=== PATIENT | male | born 1960 | race Caucasian/White ===

== ENCOUNTER 2024-06-03 15:10 | Emergency (ER) | payer BC, SELFPAY ==
[2024-06-03 15:12] VITALS: BP 130/87; PULSE 66; RESP 19; TEMP 36.6; O2SAT 99; BMI 24.4
--- NOTE | 2024-06-03 15:55 | CT_ITS ---
PROCEDURE INFORMATION: Exam: CT Neck With Contrast Exam date and time: 06/03/2024 4:48 PM Age: 63 years old Clinical indication: Neck pain; Additional info: Neck, mouth, and tongue pain TECHNIQUE: Imaging protocol: Computed tomography of the neck with contrast. Radiation optimization: All CT scans at this facility use at least one of these dose optimization techniques: automated exposure control; mA and/or kV adjustment per patient size (includes targeted exams where dose is matched to clinical indication); or iterative reconstruction. Contrast material: ISOVUE; Contrast volume: 75 ml; Contrast route: IV; COMPARISON: CT SOFT TISSUE NECK W CON 06/03/2024 4:48 PM FINDINGS: Paranasal sinuses: Mild mucosal thickening floor of the right maxillary sinus otherwise visualized paranasal sinuses are clear. Salivary glands: Normal. Glands are normal in size. Pharynx: Unremarkable. No significant tonsillar enlargement. Prevertebral and retropharyngeal spaces: Unremarkable. Larynx: Unremarkable. Epiglottis is normal. Thyroid: Normal. No enlarged or calcified nodules. Trachea: Visualized trachea is unremarkable. Lungs: Lung apices are clear. Lymph nodes: Unremarkable. No lymphadenopathy. Bones/joints: There is reversal of cervical lordosis that appears to be degenerative in nature. [id number] multilevel degenerative changes are noted throughout the cervical spine. Soft tissues: Unremarkable. No significant soft tissue swelling. IMPRESSION: Unremarkable contrast enhanced CT examination of the neck.
--- NOTE | 2024-06-03 15:55 | CT_ITS ---
PROCEDURE INFORMATION: Exam: CTA Abdomen and Pelvis With Contrast Exam date and time: 06/03/2024 4:43 PM Age: 63 years old Clinical indication: Abdominal pain; Epigastric; Additional info: Epigastric pain, nausea, anorexia TECHNIQUE: Imaging protocol: Computed tomographic angiography of the abdomen and pelvis with contrast. Exam focused on the arteries. 3D rendering (Not supervised by radiologist): MIP and/or 3D reconstructed images were created by the technologist. Radiation optimization: All CT scans at this facility use at least one of these dose optimization techniques: automated exposure control; mA and/or kV adjustment per patient size (includes targeted exams where dose is matched to clinical indication); or iterative reconstruction. Contrast material: ISOVUE 370; Contrast volume: 80 ml; Contrast route: INTRAVENOUS (IV); COMPARISON: No relevant prior studies available. FINDINGS: Lungs: Lung bases are clear. Heart: Heart is borderline enlarged. Aorta: No aortic aneurysm. No aortic dissection. Celiac trunk and mesenteric arteries: No occlusion or significant stenosis. Renal arteries: No occlusion or significant stenosis. Right iliac arteries: No occlusion or significant stenosis. Left iliac arteries: No occlusion or significant stenosis. Liver: Liver is unremarkable. No mass or enlargement detected. Gallbladder and biliary ducts: Unremarkable. No calcified stones. No ductal dilation. Pancreas: Unremarkable. Main pancreatic duct is not significantly dilated. Spleen: There are scattered calcified granulomas within the spleen, longstanding, otherwise spleen is unremarkable. Adrenal glands: Unremarkable. No mass. Kidneys and ureters: Unremarkable. No solid mass. No hydronephrosis. Stomach and bowel: Moderate degree of retained stool throughout the large bowel that may reflect some degree of constipation. Appendix: No evidence of acute appendicitis. Intraperitoneal space: Unremarkable. No free air. No significant fluid collection. Lymph nodes: Unremarkable. No enlarged lymph nodes. Urinary bladder: Unremarkable. No mass. Reproductive: Unremarkable as visualized. Bones/joints: No acute fracture. Soft tissues: Unremarkable. IMPRESSION: 1. Unremarkable CTA of the abdomen and pelvis. 2. Moderate degree of retained stool throughout the large bowel that may reflect some degree of constipation.
[2024-06-03 16:00] VITALS: BP 131/90; PULSE 62; O2SAT 96
[2024-06-03 16:00] LABS: Basophils # 0.1 K/mm3 (0-0.2); Eosinophils # 0.1 K/mm3 (0.0-0.4); Eosinophils % 1.1 % (0.1-12.0); Hematocrit 44.3 % (42.0-52.0); Hemoglobin 15.7 g/dL (14.1-18.0); Lymphocytes # 1.2 K/mm3 (0.7-4.5); Mean Corpuscular HGB Conc 35.4 g/dL (31.8-35.4); Mean Corpuscular Hemoglobin 31.4 pg (27.0-31.2); Mean Corpuscular Volume 88.6 fl (80-94); Mean Platelet Volume 8.9 fl (7.4-10.4); Monocytes # 0.5 K/mm3 (0.1-1.0); Monocytes % 8.3 % (1.7-9.3); Neutrophils # 4.3 K/mm3 (1.8-7.8); Neutrophils % 70.1 % (37.0-80.0); Platelet Count 244 K/mm3 (142-424); Red Cell Distribution Width 11.9 % (11.5-17.5); White Blood Count 6.1 K/mm3 (4.8-10.8)
--- NOTE | 2024-06-03 16:02 | HMH.EDGENADL ---
Discharge Plan Disposition Patient Disposition: Home, Self-Care Condition: Good Prescriptions Prescriptions: New sucralfate [Carafate] 1 gram tablet 1 g PO BID PRN (Reason: abdominal discomfort) Qty: 60 0RF nystatin 100,000 unit/mL suspension 4 ml PO QID 10 Days Qty: 160 0RF Rx Instructions: swish and swallow polyethylene glycol 3350 [Miralax] 17 gram/dose powder 17 g PO DAILY Qty: 510 0RF metoclopramide HCl [Reglan] 5 mg tablet 5 mg PO Q6H PRN (Reason: nausea and vomiting) Qty: 20 0RF Referrals Follow up/Referrals: Susie Sanchez [Primary Care Provider] - See instructions Kulwant Zamora II, MD [Staff Physician] - See instructions Activity Restrictions/Add. Instructions Additional Instructions/Restrictions: You were evaluated in the emergency department today. At this time, your CT scans and labs are reassuring. I feel your oral issues may be related to thrush, so I will prescribe you a trial of nystatin. You are found to have constipation, for which I prescribed MiraLAX. For your stomach issues, I am prescribing you Reglan and Carafate. Please follow-up closely with your primary care provider. I also recommend close follow-up with gastroenterology. Return to the emergency department for new or worsening symptoms. Clinical Impressions Clinical Impression: Oral thrush, Abdominal pain, epigastric, Constipation Stand Alone Forms Stand Alone Forms: Work/School Release Instructions Patient Instructions: DI for Thrush, DI for Constipation, DI for Acute Abdominal Pain Print Language Print Language: Guatemalan Discharge ED Provider: Sujata Kirk General Adult HPI General Chief complaint: Abdominal Pain Stated complaint: abd pain Time Seen by Provider: 06/03/24 15:18 Mode of Arrival: Ambulatory Source of Information: Patient Limitations: No Limitations Description of Symptoms (Recalled from ER Triage Doc. by RN): pt presents to ED with c/o dark stools, nausea, vomitting, abdominal pain. symptoms ongoing for the past 3 months. History of Present Illness HPI narrative: This patient is a 63-year-old male with a history of hypertension and hyperlipidemia presenting to the emergency department for evaluation with concern for abdominal pain, nausea, inability to eat. Patient states that has been having issues since November. He notes that he was healthy prior to that. He started having some neck pain, tongue cracking and discoloration, tongue burning, nausea, epigastric pain, and poor appetite. Symptoms have been waxing waning and he has followed up outpatient with his care team in [facility]. He notes that he is underwent MRI of his neck which was concerning for neuroforaminal stenosis. He also had a CT scan that found a dental abscess, which he had taken care of. He has not had imaging of his belly or had any sort of upper or lower endoscopy. He notes he took some Pepto-Bismol for his symptoms, and his stools are darker than normal but not necessarily black tarry. No prior abdominal surgeries. No fevers, chills, cough, congestion, chest pain, shortness of breath, diarrhea, vomiting, unintentional weight loss, or other concerns. He does note night sweats. Related Data Previous Rx's ?Medication ?Instructions ?Recorded metoclopramide HCl 5 mg tablet 5 mg PO Q6H PRN nausea and 06/03/24 (Reglan) vomiting #20 tabs nystatin 100,000 unit/mL oral 4 ml PO QID 10 days #160 mL 06/03/24 suspension polyethylene glycol 3350 17 17 g PO DAILY #510 grams 06/03/24 gram/dose oral powder (Miralax) sucralfate 1 gram tablet (Carafate) 1 g PO BID PRN abdominal 06/03/24 discomfort #60 tabs Allergies Allergy/AdvReac Type Severity Reaction Status Date / Time No Known Allergies Allergy Verified 06/03/24 15:36 [facility] Disclaimer: The information contained in this section may have been updated after the patient was seen, as this information can be updated by other users. Social History Smoking Status: Never smoker alcohol intake: never current occupational status: retired Travel in the last 8 weeks: None ROS Obtained: Yes All systems reviewed & no additional complaints except as documented Physical Exam General General appearance: alert and in no apparent distress Head Head exam: atraumatic and normocephalic Eye Eye exam: Present normal appearance, PERRL and EOMI ENT ENT exam: Present mucous membranes dry and normal external ear exam Expanded ENT Exam Mouth exam: Present other (dry and cracked tongue with white/yellow plaques, dark area on posterior tongue) Neck Neck exam: Present normal inspection, full ROM and trachea midline; Absent tenderness Chest Chest inspection: Present normal inspection and symmetric chest wall rise; Absent tenderness Respiratory Respiratory exam: Present normal lung sounds bilaterally; Absent respiratory distress, wheezes, stridor or accessory muscle use Cardiovascular Cardiovascular exam: Present regular rate and normal rhythm Abdominal Exam Abdominal exam: Present soft and tenderness (Epigastric); Absent distention, guarding, rebound or rigidity Extremities Exam Extremities exam: Present normal inspection, full ROM and normal capillary refill; Absent tenderness or edema Back Exam Back exam: Present normal inspection and full ROM; Absent tenderness Neurological Exam Neurological exam: Present alert, oriented X3, CN II-XII intact and normal gait; Absent motor sensory deficit Psychiatric Psychiatric exam: Present normal affect and normal mood Skin Skin exam: Present warm and dry Medical Decision Making Medical Records Medical records reviewed: Yes I reviewed the patient's medical records. Screening: Per USPSTF and CDC recommendations, given the prevalence of disease in our region, it is our hospital?s policy to screen for HIV and viral Hepatitis for all patients aged 18 and over and those with ongoing risk factors. Derrick Inquiry Pt receiving controlled substance: No Vital Signs: 06/03/24 15:12 06/03/24 16:00 06/03/24 16:53 Temperature 97.9 F Temperature Source Oral Pulse Rate 62 63 Pulse Rate [Left Radial] 66 Respiratory Rate 19 Blood Pressure 131/90 143/90 H Blood Pressure [Right Arm] 130/87 Blood Pressure Mean [Right Arm] 101 02 Sat by Pulse Oximetry 99 96 98 Oxygen Delivery Method Room Air Room Air Room Air 06/03/24 17:00 06/03/24 17:30 06/03/24 18:44 Temperature 97.9 F Temperature Source Pulse Rate 52 L 49 L 49 L Pulse Rate [Left Radial] Respiratory Rate 13 Blood Pressure 134/83 130/79 130/79 Blood Pressure [Right Arm] Blood Pressure Mean [Right Arm] 02 Sat by Pulse Oximetry 97 98 Oxygen Delivery Method Room Air Room Air Lab Data Lab results reviewed: Yes I reviewed the patient's lab results. Lab Results 06/03/24 15:18: Urine Color Yellow, Urine Appearance Clear, Urine pH 7.5, Ur Specific [place] 1.010, Urine Protein Negative, Urine Glucose (UA) Negative, Urine Ketones Negative, Urine Blood Negative, Urine Nitrate Negative, Urine Bilirubin Negative, Urine Urobilinogen 0.2, Ur Leukocyte Esterase Negative, Urine RBC None, Urine WBC None, Ur Squamous Epith Cells None, Urine Bacteria Trace 06/03/24 15:30: WBC 6.1, RBC 5.00, Hgb 15.7, Hct 44.3, MCV 88.6, MCH 31.4 H, MCHC 35.4, RDW 11.9, Plt Count 244, MPV 8.9, Neut % (Auto) 70.1, Lymph % (Auto) 19.0, [place] % (Auto) 8.3, Eos % (Auto) 1.1, Baso % (Auto) 1.0, Neut # (Auto) 4.3, Lymph # (Auto) 1.2, [place] # (Auto) 0.5, Eos # (Auto) 0.1, Baso # (Auto) 0.1, Sodium 134 L, Potassium 3.9, Chloride 103, Carbon Dioxide 24, Anion Gap 10.9, BUN 12, Creatinine 0.90, Estimated Creat Clear 86, Estimated GFR 85, Est GFR ( Amer) 103, Glucose 98, Calcium 9.5, Phosphorus 2.9, Magnesium 1.9, Total Bilirubin 0.9, AST 38, ALT 33, Alkaline Phosphatase 61, Troponin I < 0.01, Total Protein 7.2, Albumin 4.6, Globulin 2.6, Albumin/Globulin Ratio 1.8, Lipase 93, Vitamin B12 748, TSH 0.97, Thyroxine (T4) 10.7 06/03/24 15:59: VBG pH 7.43 H, VBG pCO2 38.9, VBG pO2 48.5 H, VBG HCO3 25.4, VBG Total CO2 26.6, VBG O2 Saturation 84.5 H, VBG Base Excess 1.3, VBG Lactic Acid 2.1 H 06/03/24 17:57: Stool Occult Blood Negative 06/03/24 15:30 06/03/24 15:30 Orders (Tests/Meds): ED MEDICATIONS Discontinued Medications Generic Name Dose Route Start Last Admin Trade Name Freq PRN Reason Stop Dose Admin Dicyclomine HCl 20 mg 06/03/24 15:52 06/03/24 16:14 Dicyclomine 10mg Capsule PO 06/03/24 15:53 20 mg ONCE ONE Administration Famotidine 20 mg 06/03/24 15:52 06/03/24 16:14 Famotidine 20mg/2ml Vial IV 06/03/24 15:53 20 mg ONCE ONE Administration Iopamidol 80 ml 06/03/24 16:47 06/03/24 16:48 Iopamidol-370 (76%);100ml Bottle IV 06/03/24 16:48 80 ml ONCE ONE Administration Iopamidol 75 ml 06/03/24 16:49 06/03/24 16:49 Iopamidol-370 (76%);100ml Bottle IV 06/03/24 16:50 75 ml ONCE ONE Administration Metoclopramide HCl 5 mg 06/03/24 15:52 06/03/24 16:14 Metoclopramide Hcl 10mg/2ml Vial IVP 06/03/24 15:53 5 mg ONCE ONE Administration Nystatin 500,000 unit 06/03/24 17:36 06/03/24 18:11 Nystatin Susp 500,000 Units/5ml Udc PO 06/03/24 17:37 500,000 unit ONCE ONE Administration Sodium Chloride 8 ml 06/03/24 15:52 Sodium Chloride 0.9% 10ml Vial IV 07/03/24 15:51 NEEDED PRN dilute pepcid Sodium Chloride 10 ml 06/03/24 16:47 06/03/24 16:48 Sodium Chloride 0.9% 10ml Syr (Rad Only) IV 06/03/24 16:48 10 ml ONCE ONE Administration Sodium Chloride 50 ml 06/03/24 16:47 06/03/24 16:48 0.9 % Sodium Chloride 50 Ml Vial IV 06/03/24 16:48 50 ml ONCE ONE Administration Sodium Chloride 10 ml 06/03/24 16:49 06/03/24 16:49 Sodium Chloride 0.9% 10ml Syr (Rad Only) IV 06/03/24 16:50 10 ml ONCE ONE Administration Tetracycl/Hydrocort/Nystatin/Diphen 15 ml 06/03/24 15:54 06/03/24 16:14 Magic Mouthwash 300ml Bottle PO 06/03/24 15:55 15 ml ONCE ONE Administration ORDERS Category Date Time Status CT angio abdomen pelvis Stat Cat Scan 06/03/24 15:[address] soft tissue neck w con Stat Cat Scan 06/03/24 15:55 Completed Complete Blood Count Auto Diff Stat Lab 06/03/24 15:30 Completed Comprehensive Metabolic Panel Stat Lab 06/03/24 15:30 Completed Lipase Stat Lab 06/03/24 15:30 Completed MAG [Magnesium] Stat Lab 06/03/24 15:30 Completed Occult Blood,Stool Stat Lab 06/03/24 17:57 Completed PHOS [Phosphorous] Stat Lab 06/03/24 15:30 Completed T4 (Thyroxine) Stat Lab 06/03/24 15:30 Completed TSH [Thyroid Stimulating Hormone] Stat Lab 06/03/24 15:30 Completed Trop I [Troponin I] Stat Lab 06/03/24 15:30 Completed UA [Urinalysis and Microscopic] Stat Lab 06/03/24 15:18 Completed Vitamin B12 Stat Lab 06/03/24 15:30 Completed VBG [Venous Blood Gas] Stat RT 06/03/24 15:59 Completed ECG Data Tracing #1: I reviewed this ECG and interpreted as documented below: Sinus bradycardia with a ventricular rate of 56 bpm. Right ventricular conduction delay. No acute STEMI. Normal axis ECG initial impression date: 06/03/24 ECG initial impression time: 16:07 Medical Decision Narrative: In summary, this patient is a 63-year-old male presenting to the Emergency Department for evaluation of months of epigastric discomfort, nausea, tongue/oral issues, darker stools than normal. Differential diagnoses considered include but are not limited to esophagitis, gastritis, peptic ulcer disease, malignancy, thrush, dehydration, intestinal ischemia, pancreatitis, upper GI bleed. Ruling out the most morbid conditions drove assessment. It should be noted patient's history includes hypertension and hyperlipidemia which may or may not be at goal therapy. This complicates all aspects of care by increasing patient's risk for morbidity. On exam, the patient is lying in bed in no acute distress. He has dry mouth with a yellow, cracked tongue with a dark area on the posterior aspect. He has had darker stools normal but denies black tarry stools. He has been taking Pepto-Bismol for gastrointestinal symptoms. He has nausea but no vomiting. He has epigastric tenderness with no rebound or guarding. Workup included broad lab evaluation to evaluate for infectious, metabolic etiologies of his symptoms as well as CT soft tissue neck given his issues with his neck/mouth and CT angiogram of the abdomen and pelvis. He was given Magic mouthwash, Reglan, Pepcid, Bentyl for symptomatic improvement. EKG was obtained and is reassuring. I independently interpreted CT scan prior to the radiologist read and noted no obvious obstructive process in the abdomen, no obvious large lesions in the neck. He does have constipation. Please see their read for final interpretation. Labs were obtained that demonstrated reassuring CBC with no significant anemia, Hemoccult stool is negative, patient has mild alkalosis, negative troponin, reassuring chemistry, reassuring urine. On reassessment, patient had good improvement after administration of interventions above. He is feeling better. Overall, his oral exam looks like it could be thrush, so I am going to trial him on nystatin. I also prescribed him Carafate with concern for possible gastritis, MiraLAX with concern for constipation, nystatin for potential oral thrush, Reglan for nausea. Overall, at this time, I feel the patient's symptoms are improved and he is appropriate for discharge home with very close follow-up with gastroenterology for further evaluation and management of his symptoms. He was given strict return precautions and was discharged after all questions were answered. Critical Care Critical Care Time Critical Care Time: No
[2024-06-03 16:03] LABS: Microscopic, Urine URINE MICROSCOPIC (MICROSCOPIC)
--- NOTE | 2024-06-03 16:03 | ECG_ITS ---
APPROVED REPORT Exam: Resting ECG HR:56 bpm ECG Measurements Heart Rate 56 AXES KS 191 P 63 QRSd 87 QRS 45 QT 407 T 17 QTc 399 Conclusion SINUS BRADYCARDIA POSSIBLE RIGHT VENTRICULAR CONDUCTION DELAY [RSR (QR) IN V1/V2] NONSPECIFIC T-WAVE ABNORMALITY No STEMI Electronically signed by : DENISE CHOE, 06/04/2024 00:52:18
[2024-06-03 16:04] LABS: Appearance,Urine CLEAR (Clear); Bilirubin,Urine Negative (Negative); Blood, Urine Negative (Negative); Color,Urine YELLOW (Yellow); Glucose,Urine (UA) Negative (Negative); Ketones,Urine Negative (Negative); Leukocyte Esterase,Urine Negative (Negative); Nitrate,Urine Negative (Negative); PH,Urine 7.5 (5.0-8.5); Protein,Urine Negative (Negative); Urobilinogen,Urine 0.2 EU/dl (0.2)
[2024-06-03 16:05] LABS: VBG PH 7.43 mmol/L (7.31-7.41)
[2024-06-03 16:06] LABS: Lactate Venous 2.1 mmol/L (0.4-2.0); VBG Base Excess 1.3 mmol/L (-2.4-2.3); VBG HCO3 25.4 mmol/L (23-30); VBG Oxygen Saturation 84.5 % (50-70); VBG PCO2 38.9 mmol/L (35-51); VBG PO2 48.5 mmol/L (28-40); VBG Total CO2 26.6 mmol/L (23-27)
[2024-06-03 16:11] LABS: Albumin Level 4.6 g/dl (3.5-5.0)
[2024-06-03 16:12] LABS: Chloride 103 mmol/L (98-107); Potassium 3.9 mmoL/L (3.5-5.1); Sodium 134 mmol/L (136-145)
[2024-06-03 16:14] LABS: Alanine Aminotransferase 33 U/L (12-78); Alkaline Phosphatase 61 U/L (38-126); Anion Gap 10.9 mEq/L (5-15); Aspartate Amino Transferase 38 U/L (17-59); Bilirubin,Total 0.9 mg/dl (0.2-1.3); Blood Urea Nitrogen 12 mg/dl (9-20); Carbon Dioxide 24 mmol/L (22.0-30.0); Creatinine Clearance Estimated 86 mL/min (50-200); Estimated Glomerular Filt Rate 85 ml/min (>60); GFR (African American) 103 ML/MIN (>60)
[2024-06-03] MEDS: DICYCLOMINE 10MG CAPSULE 20 MG PO (16:14)
[2024-06-03] MEDS: MAGIC MOUTHWASH 300ML BOTTLE 15 ML PO (16:14)
[2024-06-03] MEDS: FAMOTIDINE 20MG/2ML VIAL 20 MG IV (16:14)
[2024-06-03] MEDS: METOCLOPRAMIDE HCL 10MG/2ML VIAL 5 MG IVP (16:14)
[2024-06-03 16:15] LABS: Albumin/Globulin Ratio 1.8 (1.1-1.8); Calcium 9.5 mg/dl (8.4-10.2); Globulin 2.6 g/dL (1.3-3.2); Glucose 98 mg/dl (74-100); Lipase 93 U/L (23-300); Magnesium 1.9 mg/dl (1.6-2.3); Phosphorous 2.9 mg/dl (2.5-4.5); Total Protein,Serum 7.2 g/dl (6.3-8.2)
[2024-06-03 16:19] LABS: Bacteria,Urine Trace /lpf
[2024-06-03 16:32] LABS: T4 (Thyroxine) 10.7 ug/dl (5.53-11.0)
[2024-06-03 16:34] LABS: Troponin I < 0.01 ng/ml (0.00-0.034)
[2024-06-03 16:46] LABS: Thyroid Stimulating Hormone 0.97 uIU/mL (0.465-4.68)
[2024-06-03] MEDS: 0.9 % SODIUM CHLORIDE 50 ML VIAL IV (16:48)
[2024-06-03] MEDS: IOPAMIDOL-370 (76%);100ML BOTTLE 80 ML IV (16:48)
[2024-06-03] MEDS: SODIUM CHLORIDE 0.9% 10ML SYR (RAD ONLY) 10 ML IV ×2 (16:48→16:49)
[2024-06-03] MEDS: IOPAMIDOL-370 (76%);100ML BOTTLE 75 ML IV (16:49)
[2024-06-03 16:53] VITALS: BP 143/90; PULSE 63; O2SAT 98
[2024-06-03 17:00] VITALS: BP 134/83; PULSE 52; O2SAT 97
[2024-06-03 17:09] LABS: Vitamin B12 748 pg/mL (239-931)
[2024-06-03 17:30] VITALS: BP 130/79; PULSE 49; O2SAT 98
[2024-06-03] MEDS: NYSTATIN SUSP 500,000 UNITS/5ML UDC 500000 UNIT PO (18:11)
[2024-06-03 18:22] LABS: Occult Blood,Stool Negative (Negative)
[2024-06-03 18:44] VITALS: BP 130/79; PULSE 49; RESP 13; TEMP 36.6
[2024-06-03 20:05] LABS: Reflex Lactic Add Lactic Reflex
== END 2024-06-03 18:44 | disposition home or self-care (01) ==
PROVIDERS: Emergency Provider Emergency Medicine; PCP Internal Medicine
DX: B37.0 Candidal stomatitis (principal); K59.00 Constipation, unspecified; R10.13 Epigastric pain; R11.2 Nausea with vomiting, unspecified; M54.2 Cervicalgia; R63.8 Other symptoms and signs concerning food and fluid intake; K92.1 Melena
CPT/HCPCS: 70491; 74174; 80053; 81001; 82272; 82607; 82803; 83690; 83735; 84100; 84436; 84443; 84484; 85025; 93005; 96374; 96375; 99285; G0328; J2765; Q9967; S0028

== ENCOUNTER 2024-06-10 08:05 | Outpatient (CLI) | payer BC, SELFPAY ==
--- NOTE | 2024-06-10 08:13 | US_ITS ---
FINAL REPORT CLINICAL HISTORY: EPIGASTRIC PAIN FINDINGS: RIGHT UPPER QUADRANT ULTRASOUND Technique: Ultrasound images of the right upper quadrant were obtained. There are small calcified granulomas in the liver. The gallbladder is well visualized and the wall appears normal. There are no gallstones. Common duct is normal. The right kidney is unremarkable. IMPRESSION: No acute process Reviewed, Interpreted and Dictated by Adair Frias MD Transcribed by Chitra Springer Authenticated and [facility]
== END 2024-06-10 23:59 | disposition home or self-care (01) ==
LOC: RAD 08:09
PROVIDERS: PCP Internal Medicine; Visit Provider Nurse Practitioner Family
DX: R10.13 Epigastric pain (principal)
CPT/HCPCS: 76705

== ENCOUNTER 2024-06-17 07:56 | Outpatient (RCR) | payer BC, SELFPAY | END 2024-06-17 23:59 | disposition home or self-care (01) | LOC: PT 07:56 | PROVIDERS: PCP Internal Medicine; Visit Provider Neurological Surgery | DX: M47.812 Spondylosis without myelopathy or radiculopathy, cervical region (principal) | CPT/HCPCS: 97110; 97163; 97530 ==

== ENCOUNTER 2024-07-05 06:10 | Day surgery (SDC) | payer BC, SELFPAY ==
[2024-06-29 12:39] VITALS: BMI 25.0
[2024-07-05 06:29] VITALS: BP 147/96; PULSE 59; RESP 18; TEMP 36.6; O2SAT 97
[2024-07-05] MEDS: LACTATED RINGERS 1000ML 1,000 ML 50 ML IV (06:39)
--- NOTE | 2024-07-05 06:52 | EXP.ANES.CKL ---
[facility] Disclaimer: The information contained in this section may have been updated after the patient was seen, as this information can be updated by other users. Medical History Hyperlipemia HTN (hypertension) Surgical History Hx of knee surgery History of total replacement of right shoulder joint Family History (Updated 07/05/24 @ 06:36 by Clare Dhaliwal RN) Other Heart disease Social History (Updated 07/05/24 @ 06:37 by Clare Dhaliwal RN) Smoking Status: Never smoker alcohol intake: never substance use type: denies use current occupational status: employed Travel in the last 8 weeks: None caffeine: Yes Have you lived/traveled outside [place] in past 30 days?: No Contact w/someone who lives/traveled outside US past 30 days?: No Exposure to someone with infectious disease in past 14 days?: No Do you have a fever (greater than 100.4 F or 38 C)?: No Have you tested positive for COVID-19: No Exposed to someone with COVID-19 in past 14 days?: No Do you have a sore throat?: No Do you have a cough?: No Do you have any weakness?: No Are you experiencing any nausea/vomitting?: No Do you have any diarrhea?: No Are you experiencing any unusual bleeding?: No Do you have any muscle aches/pain?: No Do you have any abdominal pain?: No Are you experiencing loss of taste or smell?: No [facility] Anesthesia Checklist Patient Identification Patient Identification: Arm Band and Family Structural Data Admitted From: Home Planned Operative Procedure/s: EGD Consent for Planned Operative Procedure(s) Verified: Yes Verified Documents: Surgical Consent and History and Physical NPO Status Verified Time NPO: 00:00 Additional verifications Patient : No Anesthesia Reactions: No Hx Blood Transfusions: No Blood Transfusion Reaction: No Cephalosporin Allergy: No Previous Colonoscopy: Yes Airway Assessment Mallampati Score:: Class II C-Spine Mobility Assessed: Yes TMJ Mobility Assessed: Yes Dentition: Good Dentition Neurological Assessment Level of Consciousness: Awake, Alert, Appropriate and Follows Commands Hx Seizures: No Numbness or tingling in extremities: No Anesthesia Plan Anesthesia Risk discussed: Yes ASA Class: II Anesthesia Type: MAC Preoperative Comments Pre-Operative Comments: Hypertension. Hx Hep A 1969, resolved. Cervical spine stenosis, physical therapy.
[2024-07-05 07:39] VITALS: O2SAT 96
--- NOTE | 2024-07-05 07:46 | EXP.HP ---
History of Present Illness *Admission Date: 07/05/24 *Reason for visit:: Epigastric pain *History of present illness: Mr. Tafoya is a 63-year-old gentleman who is here for diagnostic evaluation of his dyspepsia with epigastric discomfort. He does report some bloating/tightness. His CAT scan had shown obstipation. The patient has had increased stress. The examination is deemed medically necessary for diagnostic EGD. The patient has been seen, interviewed and examined prior to the procedure by both myself and the anesthesia provider. [facility] Disclaimer: The information contained in this section may have been updated after the patient was seen, as this information can be updated by other users. Medical History (Updated 07/05/24 @ 07:48 by Kulwant Zamora II, MD) Hyperlipemia HTN (hypertension) Surgical History Hx of knee surgery History of total replacement of right shoulder joint Family History (Updated 07/05/24 @ 06:36 by Clare Dhaliwal RN) Other Heart disease Social History (Updated 07/05/24 @ 06:37 by Clare Dhaliwal RN) Smoking Status: Never smoker alcohol intake: never substance use type: denies use current occupational status: employed Travel in the last 8 weeks: None caffeine: Yes Have you lived/traveled outside US in past 30 days?: No Contact w/someone who lives/traveled outside US past 30 days?: No Exposure to someone with infectious disease in past 14 days?: No Do you have a fever (greater than 100.4 F or 38 C)?: No Have you tested positive for COVID-19: No Exposed to someone with COVID-19 in past 14 days?: No Do you have a sore throat?: No Do you have a cough?: No Do you have any weakness?: No Are you experiencing any nausea/vomitting?: No Do you have any diarrhea?: No Are you experiencing any unusual bleeding?: No Do you have any muscle aches/pain?: No Do you have any abdominal pain?: No Are you experiencing loss of taste or smell?: No Review of Systems Review of Systems Review of systems (narrative): Negative *Cardiovascular Comments: Negative *Gastrointestinal Comments: Negative *Genitourinary Comments: Negative *Musculoskeletal Comments: Negative *Neurologic Comments: Negative Meds Home Medications and Allergies Home Medications ?Medication ?Instructions ?Recorded ?Confirmed ?Type amitriptyline 10 mg tablet 10 mg PO DAILY 06/17/24 07/05/24 History atorvastatin 20 mg tablet 20 mg PO DAILY 06/17/24 07/05/24 History losartan 25 mg tablet 25 mg PO DAILY 06/17/24 07/05/24 History pantoprazole 40 mg tablet,delayed 40 mg PO ONCE 06/17/24 07/05/24 History release polyethylene glycol 3350 17 17 g PO DAILY PRN . 06/17/24 07/05/24 History gram/dose oral powder (Miralax) psyllium husk 3.4 gram/5.4 gram 1 tbsp PO DAILY 06/17/24 07/05/24 History oral powder (Metamucil) New Prescriptions to Start Prescriptions: Allergies Allergy/AdvReac Type Severity Reaction Status Date / Time No Known Allergies Allergy Verified 07/05/24 06:24 Exam Data for Last 24 hours Vital signs and Labs for Last 24 Hours: Temp Pulse Resp BP Pulse Ox O2 Del Method O2 Flow Rate 97.8 F 59 L 18 147/96 H 97 Nasal Cannula 5 07/05/24 06:29 07/05/24 06:29 07/05/24 06:29 07/05/24 06:29 07/05/24 06:29 07/05/24 07:39 07/05/24 07:39 *Routine HEENT Exam Head: Present normocephalic Eye: Present EOMI and PERRL ENT: Present mucous membranes moist *Routine Neck Exam Neck: Present supple *Routine Respiratory Exam Respiratory: Present CTA bilaterally *Routine Cardiovascular Exam Cardiovascular: Present RRR *Routine Abdominal Exam Abdominal: Present soft and normoactive bowel sounds; Absent tenderness *Routine Rectal Exam Rectal:: deferred *Routine Genitalia Exam Genitalia:: deferred *Routine Extremities Exam Extremities: Absent cyanosis, clubbing or edema *Routine Skin Exam Skin: Present warm; Absent rash *Routine Neurological Exam Neurological: Present alert and oriented X3 Assessment and Plan *Assessment and plan (1) Epigastric abdominal pain: Status: Acute Category: Medical Code(s): R10.13 - Epigastric pain (2) Bloating: Status: Acute Category: Medical Code(s): R14.0 - Abdominal distension (gaseous) (3) Nausea: Status: Acute Category: Medical Code(s): R11.0 - Nausea (4) Obstipation: Status: Acute Category: Medical Code(s): K59.00 - Constipation, unspecified Plan A/P: 1. Epigastric abdominal pain with nausea and bloating is the preprocedural diagnosis. The patient will be anesthetized/sedated using MAC sedation. The patient has been seen and examined. Cardiac and lung assessment prior to the examination is stable. Proceed with planned EGD
--- NOTE | 2024-07-05 07:48 | HMH.PROCNOTE ---
[facility] Procedure Note Date: 07/05/24 Time: 07:54 Procedure Note:: Upper Endoscopy Procedure Report: Esophagogastroduodenoscopy with cold biopsies Endoscopost: Kulwant Zamora II, MD Referring Physician: Susie Sanchez MD Date of Procedure: July 05, 2024 Equipment: Olympus GIF 190 standard upper endoscope Sedation: MAC sedation Indications: Mr. Tafoya is a 63-year-old gentleman with epigastric abdominal discomfort over the last few months. The patient does report some bloating and mild nausea. He reports no early satiety, heartburn or dysphagia. He does report mostly regular bowel movements and takes Metamucil for years. He did go to the emergency department and had a CAT scan that showed obstipation. He has had stress over the last year. He reports no early satiety. He has had negative Hemoccult testing. He reports some pressure in the upper abdomen. He did have a colonoscopy in 2021 ([place]?Dr. Amado) and states that he would be due between 3 and 5 years. He reports no family history of colon cancer but his great grandfather had gastric cancer. His grandfather had gastric ulcers. He was having some reflux and was taking Pepto-Bismol and Tums. He has been on pantoprazole without significant improvement of his symptoms. Procedure: Prior to the procedure, a history and physical exam was performed, and patient's medications and allergies were reviewed. The risks, benefits and alternatives of the sedation and procedure were discussed with the patient. All questions were answered and informed consent was obtained. The patient was brought to the procedure room. Patient identification and proposed procedure were verified by the physician and the nurse. The patient was placed in a left lateral decubitus position and the scope was passed under direct vision. Throughout the procedure, the patient's blood pressure, pulse, and oxygen saturations were monitored continuously. The upper GI endoscopy was accomplished without difficulty. The patient tolerated the procedure well. Findings: The scope was passed directly into the upper esophagus and advanced to the third portion of the duodenum. The post bulbar duodenum, ampulla and duodenal bulb were normal with normal mucosa and conniventes. The scope was withdrawn through a normal duodenal bulb and pylorus into the stomach. There was mild linear reactive gastropathy with mild bile reflux of the antrum. The body and fundus of the stomach were grossly normal. There were a couple of fundic gland polyps. Upon retroflexion there was a small 2 cm hiatal hernia. Biopsies were taken from the antrum. The scope was then withdrawn into the esophagus. There is no evidence of reflux esophagitis. There was a serrated Z-line with 2 very short tongues of salmon-colored mucosa that were biopsied. There were tertiary contractions and evidence of mild to moderate esophageal dysmotility. The remainder of the esophageal mucosa was normal. Impression: 1. Nonerosive GERD with mild to moderate esophageal dysmotility and small 2 cm hiatal hernia 2. Mild linear reactive gastropathy of antrum Plan: The patient does have dyspepsia. I will follow-up the biopsies. We will discuss additional treatment options. I do believe that most of his symptoms of dyspepsia are related to and driven by lower intestinal gas pressure gradients/high gas pressure buildup resulting in backflow of bile and peptic fluid from the duodenum into the stomach (duodenal reflux). This gas production (carbon dioxide, hydrogen, methane, etc.) from the lower intestinal tract is the byproduct of colonic bacterial fermentation. This colonic fermentation occurs when there is more carbohydrate (dietary starches, sugars and high residue plant fiber) substrate that does not get digested (in the middle or small intestine) or occurs when there is colonic fecal buildup and colonic bacterial overgrowth. This indeed leads to bloating and the gas pressure buildup with gas pressure gradients that do drive backflow and dyspepsia. I would recommend dietary measures, fiber bowel regimen, Iberogast and buspirone.
[2024-07-05 07:58] VITALS: BP 114/74; PULSE 61; RESP 18; TEMP 36.1; O2SAT 94
[2024-07-05 08:08] VITALS: BP 110/74; PULSE 61; RESP 18; O2SAT 99
[2024-07-05 08:18] VITALS: BP 117/77; BP 118/72; PULSE 56; PULSE 58; RESP 18; O2SAT 98; O2SAT 99
== END 2024-07-05 08:30 | disposition home or self-care (01) ==
PROVIDERS: PCP Internal Medicine; Visit Provider Internal Medicine Gastroenterology
PROC: 0DJ08ZZ Inspection of Upper Intestinal Tract, Via Natural or Artificial Opening Endoscopic (ICD-10-PCS; CPT 43239; principal; 2024-07-05 07:30)
DX: K30 Functional dyspepsia (principal); R14.0 Abdominal distension (gaseous); R11.0 Nausea; K59.00 Constipation, unspecified; K31.7 Polyp of stomach and duodenum; K31.9 Disease of stomach and duodenum, unspecified; K44.9 Diaphragmatic hernia without obstruction or gangrene; K22.4 Dyskinesia of esophagus; K21.9 Gastro-esophageal reflux disease without esophagitis
CPT/HCPCS: 43239; J7120

== ENCOUNTER 2024-07-12 08:00 | Outpatient (RCR) | payer BC, SELFPAY | END 2024-07-12 23:59 | disposition home or self-care (01) | LOC: PT 08:00 | PROVIDERS: PCP Internal Medicine; Visit Provider Neurological Surgery | DX: M47.812 Spondylosis without myelopathy or radiculopathy, cervical region (principal) | CPT/HCPCS: 20560; 97012; 97035; 97110; 97140; 97530 ==

== ENCOUNTER 2024-07-22 07:59 | Outpatient (RCR) | payer BC, SELFPAY | END 2024-07-27 14:54 | disposition home or self-care (01) | LOC: PT 07:59 | PROVIDERS: PCP Internal Medicine; Visit Provider Neurological Surgery | DX: M47.812 Spondylosis without myelopathy or radiculopathy, cervical region (principal) | CPT/HCPCS: 97110 ==

== ENCOUNTER 2024-09-16 06:58 | Day surgery (SDC) | payer MEDICARE, SELFPAY ==
[2024-09-14 13:14] VITALS: BMI 23.7
[2024-09-16] VITALS (8 sets, daily range): BP systolic 83–132; BP diastolic 52–74; PULSE 53–60; RESP 16–18; TEMP 36.2–36.3; O2SAT 94–98
[2024-09-16] MEDS: LACTATED RINGERS 1000ML 1,000 ML 50 ML IV (07:19)
--- NOTE | 2024-09-16 07:33 | P.PNANES_ITS ---
[facility] Disclaimer: The information contained in this section may have been updated after the patient was seen, as this information can be updated by other users. Medical History Hyperlipemia HTN (hypertension) Surgical History Hx of knee surgery History of total replacement of right shoulder joint Family History Other Heart disease Social History Smoking Status: Never smoker alcohol intake: never substance use type: denies use current occupational status: retired Travel in the last 8 weeks?: None caffeine: Yes Have you lived/traveled outside US in past 30 days?: No Contact w/someone who lives/traveled outside US past 30 days?: No Exposure to someone with infectious disease in past 14 days?: No Do you have a fever (greater than 100.4 F or 38 C)?: No Have you tested positive for COVID-19?: No Exposed to someone with COVID-19 in past 14 days?: No Do you have a sore throat?: No Do you have a cough?: No Do you have any weakness?: No Do you have any diarrhea?: No Are you experiencing any unusual bleeding?: No Do you have any muscle aches/pain?: No Do you have any abdominal pain?: No Are you experiencing loss of taste or smell?: No [facility] Anesthesia Checklist Patient Identification Patient Identification: Arm Band Structural Data Admitted From: Home Planned Operative Procedure/s: Colonoscopy Consent for Planned Operative Procedure(s) Verified: Yes Verified Documents: Surgical Consent and History and Physical NPO Status Verified Time NPO: 04:30 (finished prep) Additional verifications Anesthesia Reactions: No Hx Blood Transfusions: No Blood Transfusion Reaction: No Airway Assessment Mallampati Score:: Class II C-Spine Mobility Assessed: Yes TMJ Mobility Assessed: Yes Dentition: Good Dentition Neurological Assessment Level of Consciousness: Awake, Alert and Appropriate Anesthesia Plan Anesthesia Risk discussed: Yes Anesthesia Plan: Verified ASA Class: II Anesthesia Type: MAC
--- NOTE | 2024-09-16 08:10 | EXP.HP ---
History of Present Illness *Admission Date: 09/16/24 *Reason for visit:: Surveillance colonoscopy-personal history of adenomatous colon polyps *History of present illness: Mr. Tafoya is a 64-year-old gentleman who is here for surveillance colonoscopy. He did have a colonoscopy in 2021 in [place] and had 5 polyps removed (tubular adenomas x 3/hyperplastic polyps x 2). He was given a 3-year surveillance interval. The examination is deemed medically necessary for surveillance colonoscopy. The patient has been seen, interviewed and examined prior to the procedure by both myself and the anesthesia provider. [facility] Disclaimer: The information contained in this section may have been updated after the patient was seen, as this information can be updated by other users. Medical History (Updated 09/16/24 @ 08:15 by Kulwant Zamora II, MD) Hyperlipemia HTN (hypertension) Surgical History Hx of knee surgery History of total replacement of right shoulder joint Family History Other Heart disease Social History Smoking Status: Never smoker alcohol intake: never substance use type: denies use current occupational status: retired Travel in the last 8 weeks?: None caffeine: Yes Have you lived/traveled outside US in past 30 days?: No Contact w/someone who lives/traveled outside US past 30 days?: No Exposure to someone with infectious disease in past 14 days?: No Do you have a fever (greater than 100.4 F or 38 C)?: No Have you tested positive for COVID-19?: No Exposed to someone with COVID-19 in past 14 days?: No Do you have a sore throat?: No Do you have a cough?: No Do you have any weakness?: No Do you have any diarrhea?: No Are you experiencing any unusual bleeding?: No Do you have any muscle aches/pain?: No Do you have any abdominal pain?: No Are you experiencing loss of taste or smell?: No Review of Systems Review of Systems Review of systems (narrative): Negative *Cardiovascular Comments: Negative *Gastrointestinal Comments: Negative *Genitourinary Comments: Negative *Musculoskeletal Comments: Negative *Neurologic Comments: Negative Meds Home Medications and Allergies Home Medications ?Medication ?Instructions ?Recorded ?Confirmed ?Type atorvastatin 20 mg tablet 20 mg PO DAILY 06/17/24 09/16/24 History losartan 25 mg tablet 50 mg PO DAILY 06/17/24 09/16/24 History polyethylene glycol 3350 17 17 g PO DAILY PRN . 06/17/24 09/16/24 History gram/dose oral powder (Miralax) buspirone 10 mg tablet 10 mg PO BID #60 tabs 08/17/24 09/16/24 Rx New Prescriptions to Start Prescriptions: Allergies Allergy/AdvReac Type Severity Reaction Status Date / Time No Known Allergies Allergy Verified 09/16/24 07:20 Exam Data for Last 24 hours Vital signs and Labs for Last 24 Hours: Temp Pulse Resp BP Pulse Ox O2 Del Method 97.3 F L 53 L 18 132/74 97 Room Air 09/16/24 07:22 09/16/24 07:22 09/16/24 07:22 09/16/24 07:22 09/16/24 07:22 09/16/24 07:22 I & O for Last 24 hours: Intake & Output 09/13/24 09/14/24 09/15/24 09/16/24 23:59 23:59 23:59 23:59 Weight 180 lb *Routine HEENT Exam Head: Present normocephalic Eye: Present EOMI and PERRL ENT: Present mucous membranes moist *Routine Neck Exam Neck: Present supple *Routine Respiratory Exam Respiratory: Present CTA bilaterally *Routine Cardiovascular Exam Cardiovascular: Present RRR *Routine Abdominal Exam Abdominal: Present soft and normoactive bowel sounds; Absent tenderness *Routine Rectal Exam Rectal:: deferred *Routine Genitalia Exam Genitalia:: deferred *Routine Extremities Exam Extremities: Absent cyanosis, clubbing or edema *Routine Skin Exam Skin: Present warm; Absent rash *Routine Neurological Exam Neurological: Present alert and oriented X3 Assessment and Plan *Assessment and plan (1) Personal history of adenomatous and serrated colon polyps: Status: Acute Category: Medical Code(s): Z86.0101 - Personal history of adenomatous and serrated colon polyps Plan A/P: 1. Personal history of adenomatous colon polyps is the preprocedural diagnosis. The patient will be anesthetized/sedated using MAC sedation. The patient has been seen and examined. Cardiac and lung assessment prior to the examination is stable. Proceed with planned surveillance colonoscopy.
--- NOTE | 2024-09-16 08:15 | HMH.PROCNOTE ---
[facility] Procedure Note Date: 09/16/24 Time: 08:31 Procedure Note:: Colonoscopy Procedure Report: Colonoscopy with cold snare polypectomy Endoscopist: Kulwant Zamora II, MD Referring physician: Susie Sanchez MD, [address] [place], [place] [id number] Date of Procedure: September 16, 2024 Equipment: Olympus 190 variable stiffness pediatric colonoscope Sedation: MAC sedation Indication: Mr. Tafoya is a 64-year-old gentleman who is here for follow-up surveillance colonoscopy secondary to a personal history of adenomatous colon polyps. The patient does state that he had a colonoscopy 3 years ago (2021) in [place] and had 5 polyps (tubular adenomas x 3/hyperplastic polyps x 2) removed. He reports no rectal bleeding, weight loss, change in his bowel habits or family history of colon cancer. His great grandfather had gastric cancer. He does get some intermittent right upper quadrant abdominal discomfort. He did have an EGD with me in June 2024. At that time I recommended that he begin the fiber bowel regimen (MiraLAX plus Konsyl) and Iberogast. His dyspepsia and bloating are better. Procedure: Prior to the procedure, a history and physical exam was performed, and patient's medications and allergies were reviewed. The risks, benefits and alternatives of the sedation and procedure were discussed with the patient. All questions were answered and informed consent was obtained. The patient was brought to the procedure room. Patient identification and proposed procedure were verified by the physician and the nurse. The patient was placed in a left lateral decubitus position and the scope was passed under direct vision. Throughout the procedure, the patient's blood pressure, pulse, and oxygen saturations were monitored continuously. The colonoscopy was accomplished without difficulty. The patient tolerated the procedure well. Findings: On digital rectal examination there was normal rectal tone. There were no external hemorrhoids. The prostate was 2+, smooth, soft, symmetric without nodules. The colonoscope was introduced through the anal canal to the rectum and advanced to the cecum. The ileocecal valve and appendiceal orifice were identified. The scope was advanced a short distance into the ileum which appeared grossly normal. The scope was then withdrawn into the colon. There was a single 3 to 4 mm polyp in the cecum removed via cold snare polypectomy. There was some angulation at the hepatic flexure. The remaining cecum, ascending, transverse, descending, sigmoid and rectum were grossly normal. There were no mucosal abnormalities identified. Upon retroflexion within the rectum there were grade 1-2 internal hemorrhoids. The preparation was excellent throughout with [place] Preparation Score of 9. The cecal time was 11 minutes. Impression: 1. Diminutive 3 to 4 mm cecal polyp 2. Grade 1-2 internal hemorrhoids Plan: I will follow-up the polyp histology and recommend repeat surveillance colonoscopy again in 7 to 10 years. 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 I will discuss the findings with the patient and family as well as treatment options.
== END 2024-09-16 09:30 | disposition home or self-care (01) ==
PROVIDERS: PCP Internal Medicine; Visit Provider Internal Medicine Gastroenterology
PROC: 0DJD8ZZ Inspection of Lower Intestinal Tract, Via Natural or Artificial Opening Endoscopic (ICD-10-PCS; CPT 45378; principal; 2024-09-16 08:30)
DX: Z12.11 Encounter for screening for malignant neoplasm of colon (principal); Z86.0101 Personal history of adenomatous and serrated colon polyps; K63.5 Polyp of colon; K64.8 Other hemorrhoids
CPT/HCPCS: 45385; J7120